=== PATIENT | female | born 1985 | race Caucasian/White ===

== ENCOUNTER 2019-06-17 11:17 | Emergency (ER) | payer SELFPAY ==
[~2019-06-17] VITALS: Ht 172.7 cm; Wt 99.8 kg
[2019-06-17 11:31] VITALS: BP 116/72
[2019-06-17] MEDS ORDERED: KETOROLAC TROMETH 60MG/2ML VIAL IM ONE (13:30)
== END 2019-06-17 13:59 | disposition home or self-care (01) ==
LOC: ER 11:17
DX: S00.03XA Contusion of scalp, initial encounter (principal); W22.8XXA Striking against or struck by other objects, initial encounter; Y93.89 Activity, other specified; Y99.8 Other external cause status; Y92.89 Other specified places as the place of occurrence of the external cause
CPT/HCPCS: 70450; 81025; 96372; 99284; J1885